=== PATIENT | female | born 2005 ===

== ENCOUNTER 2024-01-31 20:58 | Emergency (ER) ==
[~2024-01-31] VITALS: Ht 182.9 cm; Wt 79.5 kg
[2024-01-31] MEDS ORDERED: Clindamycin 150 MG CAP PO ONE (21:15)
== END 2024-01-31 21:46 | disposition home or self-care (01) ==
LOC: COL.ER 20:58
DX: S50.312A Abrasion of left elbow, initial encounter (principal); L03.114 Cellulitis of left upper limb; Z23 Encounter for immunization; V00.131A Fall from skateboard, initial encounter; Y93.51 Activity, roller skating (inline) and skateboarding